=== PATIENT | male | born 1940 | race Caucasian/White ===

== ENCOUNTER → 2016-10-17 12:58 | Outpatient (CLI) | payer MEDICARE | END | disposition home or self-care (01) | LOC: D.US 12:58 | DX: G45.9 Transient cerebral ischemic attack, unspecified (principal) ==

== ENCOUNTER → 2017-01-20 15:39 | Outpatient (CLI) | payer MEDICARE | END | disposition home or self-care (01) | LOC: D.RAD 15:39 | DX: M54.2 Cervicalgia (principal) ==